=== PATIENT | male | born 2000 | race Two or more races ===

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

== ENCOUNTER 2019-05-03 06:48 | Emergency (ER) | payer OTHER ==
[~2019-05-03] VITALS: Ht 170.2 cm; Wt 87.0 kg
[2019-05-03 06:54] VITALS: BP 137/84
--- NOTE | 2019-05-03 07:22 | NUR ---
DIRECTOR OF CARDIAC CATH LAB: PT TO ROOM FROM LOBBY
--- NOTE | 2019-05-03 07:40 | NUR ---
samuel is at the bedside for viral swabs
[2019-05-03] MEDS ORDERED: ONDANSETRON ODT 8 MG PO ONE (08:00)
[2019-05-03] MEDS ORDERED: ONDANSETRON ODT 4 MG ONE (08:07)
--- NOTE | 2019-05-03 08:07 | NUR ---
pt to xr w tech
[2019-05-03 08:33] LABS: RAPID INFLUENZA A Negative (Negative); RAPID INFLUENZA B Negative (Negative)
[2019-05-03 08:47] LABS: BASOPHILS # (AUTO) 0.16 x10^3/uL (0-0.3); BASOPHILS % (AUTO) 2 % (0-1); EOSINOPHILS # (AUTO) 0.24 x10^3/uL (0-0.8); EOSINOPHILS % (AUTO) 2 % (1-7); LYMPHOCYTES # (AUTO) 1.77 x10^3/uL (1-6.1); LYMPHOCYTES % (AUTO) 16 % (22-44); MD NO; MEAN CORPUSCULAR HEMOGLOBIN 32.3 pg (27.5-34.5); MEAN CORPUSCULAR HGB CONC 33.5 g/dL (33.2-36.2); MEAN CORPUSCULAR VOLUME 96.3 fL (81-97); MEAN PLATELET VOLUME 8.2 fL (7.4-10.4); MONOCYTES # (AUTO) 0.91 x10^3/uL (0-1.4); MONOCYTES % (AUTO) 8 % (2-9); NEUTROPHILS # (AUTO) 7.98 x10^3/uL (1.8-8.0); NEUTROPHILS % (AUTO) 72 % (42-75); PLATELET COUNT 374 x10^3/uL (130-400); RED BLOOD COUNT 5.01 x10^6/uL (4.38-5.82); RED CELL DISTRIBUTION WIDTH 13.3 % (9.4-14.8)
[2019-05-03 08:51] LABS: ALANINE AMINOTRANSFERASE 46 U/L (12-78); ALBUMIN 3.3 g/dL (3.4-5.0); ANION GAP 7 mmol/L (5-15); CALCIUM 8.8 mg/dL (8.5-10.1); CHLORIDE 106 mmol/L (98-107); CREATININE 0.99 mg/dL (0.7-1.3)
[2019-05-03 08:53] LABS: ALKALINE PHOSPHATASE 127 U/L (45-117); BILIRUBIN,TOTAL 0.6 mg/dL (0.2-1.0); TOTAL PROTEIN 7.8 g/dL (6.4-8.2)
--- NOTE | 2019-05-10 09:11 | NUR ---
PAUL RN: Attempted to call pt at [phone] x [phone], no answer, no voicemail for labs on 05/03/19. Culture letter sent.
--- NOTE | 2019-05-14 16:01 | NUR ---
MT: PT CALLED BACK FOR RESULTS. PT VERBALIZED UNDERSTANDING.
== END 2019-05-03 09:53 | disposition home or self-care (01) ==
LOC: ED 09:45
DX: J20.9 Acute bronchitis, unspecified (principal); Z20.828 Contact with and (suspected) exposure to other viral communicable diseases
CPT/HCPCS: 36415; 71046; 76700; 80053; 83690; 85025; 86308; 87081; 87400; 87486; 87581; 87633; 87798; 87880; 99285

== ENCOUNTER → 2019-12-11 | Outpatient (CLI) | payer OTHER ==
[2019-12-11 07:17] LABS: MEAN CORPUSCULAR HEMOGLOBIN 32.1 pg (27.5-34.5); MEAN CORPUSCULAR HGB CONC 33.4 g/dL (33.2-36.2); MEAN PLATELET VOLUME 7.8 fL (7.4-10.4); PLATELET COUNT 340 x10^3/uL (130-400); RED BLOOD COUNT 5.12 x10^6/uL (4.38-5.82); RED CELL DISTRIBUTION WIDTH 13.6 % (9.4-14.8)
[2019-12-11 07:27] LABS: ALANINE AMINOTRANSFERASE 25 U/L (12-78); ALBUMIN 3.8 g/dL (3.4-5.0); ANION GAP 5 mmol/L (5-15); CALCIUM 9.2 mg/dL (8.5-10.1); CHLORIDE 108 mmol/L (98-107); CREATININE 0.93 mg/dL (0.7-1.3)
[2019-12-11 07:30] LABS: ALKALINE PHOSPHATASE 145 U/L (45-117); BILIRUBIN,TOTAL 0.5 mg/dL (0.2-1.0); TOTAL PROTEIN 7.3 g/dL (6.4-8.2)
== END | disposition home or self-care (01) ==
LOC: LAB 07:03
PROVIDERS: ATTEND Family Medicine
DX: R74.8 Abnormal levels of other serum enzymes (principal); R25.3 Fasciculation
CPT/HCPCS: 36415; 80053; 83735; 85027

== ENCOUNTER 2020-10-02 17:05 | Emergency (ER) | payer OTHER ==
[~2020-10-02] VITALS: Ht 177.8 cm; Wt 83.1 kg
[2020-10-02] MEDS ORDERED: ACETAMINOPHEN 500 MG TABLET ONE (17:52)
[2020-10-02] MEDS ORDERED: ACETAMINOPHEN 500 MG TABLET PO ONE (18:00)
[2020-10-02 19:43] VITALS: BP 118/63
== END 2020-10-02 19:54 | disposition home or self-care (01) ==
LOC: ED 17:30
DX: U07.1 COVID-19 (principal); J06.9 Acute upper respiratory infection, unspecified
CPT/HCPCS: 71045; 99284; U0003; U0005